=== PATIENT | female | born 1985 | race Hispanic/Latino ===

== ENCOUNTER 2018-03-03 22:23 | Emergency (ER) | payer MEDICAID ==
[2018-03-03 22:54] VITALS: PULSE 76; O2SAT 100
--- NOTE | 2018-03-03 23:22 | ED PDOC ---
HPI: General Adult Time Seen by Provider: 03/03/18 22:55 Chief Complaint (Nursing): Back Pain History Per: Patient Additional Complaint(s): Pt. states 2 days ago she slipped and fell landing on her L side striking her lower back onto a step. Also reports striking her head onto the door as she fell down but reports no LOC or headache. Has had progressively worsening pain in the lower back since the fall. Also states she did injure her neck but has minimal pain to that area. Further reports today she attempted to twist her upper torso and in doing so lower back pain worsened causing her to feel SOB which lasted for only a few seconds. Currently without any SOB. Denies numbness , tingling, abdominal pain, hematuria, chest pain. Past Medical History Reviewed: Historical Data, Nursing Documentation, Vital Signs Vital Signs: Last Vital Signs Temp 98 F 03/04/18 00:03 Pulse 76 03/04/18 00:03 Resp 18 03/04/18 00:03 BP 112/70 03/04/18 00:03 Pulse Ox 100 03/04/18 00:03 - Surgical History Surgical History: No Surg Hx - Family History Family History: States: No Known Family Hx - Home Medications Home Medications: Ambulatory Orders Medication Instructions Recorded Cyclobenzaprine HCl [Flexeril] 10 mg PO Q8 #20 tab 08/16/15 Ibuprofen [Motrin] 600 mg PO Q6H PRN #20 tab 08/16/15 Ibuprofen [Motrin] 600 mg PO Q6 #20 tab 01/13/16 Cephalexin [Keflex] 500 mg PO Q6 #20 capsule 01/16/16 Cyclobenzaprine [Cyclobenzaprine 10 mg PO Q8 PRN #14 tab 03/03/18 HCl] Naproxen [Naprosyn] 500 mg PO BID PRN #14 tab 03/03/18 - Allergies Allergies/Adverse Reactions: Allergies Allergy/AdvReac Type Severity Reaction Status Date / Time No Known Allergies Allergy Verified 08/16/15 12:13 Review of Systems ROS Statement: Except As Marked, All Systems Reviewed And Found Negative Musculoskeletal: Positive for: Back Pain Physical Exam - Physical Exam Appears: Positive for: Well, Non-toxic, No Acute Distress Head Exam: Positive for: ATRAUMATIC, NORMAL INSPECTION, NORMOCEPHALIC Skin: Positive for: Normal Color, Warm. Negative for: Rash Eye Exam: Positive for: Normal appearance, EOMI, PERRL ENT: Positive for: Normal ENT Inspection, TM Is/Are (no hemotympanum b/l) Neck: Positive for: Normal, Painless ROM Cardiovascular/Chest: Positive for: Regular Rate, Rhythm, Chest Non Tender Respiratory: Positive for: Normal Breath Sounds. Negative for: Respiratory Distress Gastrointestinal/Abdominal: Positive for: Normal Exam, Bowel Sounds, Soft, Other (no ecchymosis). Negative for: Tenderness, Distended Back: Negative for: Normal Inspection (ecchymosis noted to L lower back on L pelvic area with tenderness), L CVA Tenderness, R CVA Tenderness, Vertebral Tenderness Extremity: Positive for: Normal ROM, Other (no hip tenderness or deformity b/l) Neurologic/Psych: Positive for: Alert, Oriented, Gait (steady, unassisted) - Laboratory Results Urine POC: Negative - ECG O2 Sat by Pulse Oximetry: 100 - Radiology X-Ray: Interpreted by Me (LS spine, pelvic x-ray) X-Ray Interpretation: Other (no fx) - Progress ED Course And Treament: Toradol 30mg IM, flexeril 10mg PO, pelvic x-ray, LS spine x-ray ordered. Re-evaluation Time: 23:58 (Reports good pain relief. Advised to return to ED immediately if symptoms worsen. Pt. verbalized understanding of necessary f/u. ) Condition: Re-examined, Improved Disposition - Clinical Impression Clinical Impression: Low back pain, Contusion, Head injury - Patient ED Disposition Is Patient to be Admitted: No - Disposition Referrals: Alfredo Wild [Outside] Disposition: Routine/Home Disposition Time: 23:24 Condition: IMPROVED Additional Instructions: Follow up with PMD for further evaluation Return to ED immediately if symptoms worsen Prescriptions: Cyclobenzaprine [Cyclobenzaprine HCl] 10 mg PO Q8 PRN #14 tab PRN Reason: Muscle Spasm Naproxen [Naprosyn] 500 mg PO BID PRN #14 tab PRN Reason: Pain Instructions: Low Back Pain (DC), Contusion (DC), Minor Head Injury (DC) Forms: [employer] ([place]), [facility] ED School/Work Excuse Print Language: KAZAKH
[2018-03-04 00:04] VITALS: BP 112/70; RESP 18; TEMP 98
--- NOTE | 2018-03-04 09:19 | RAD ---
PROCEDURE: Radiographs of the pelvis. HISTORY: trauma COMPARISON: None. FINDINGS: BONES: Pelvic Bones: Unremarkable. Hips: Grossly unremarkable. JOINTS: Sacroiliac Joints: Unremarkable. Pubic Symphysis: Unremarkable. OTHER FINDINGS: None. IMPRESSION: Unremarkable radiographs of the pelvis.
--- NOTE | 2018-03-04 09:19 | RAD ---
PROCEDURE: Radiographs of the Lumbar Spine. HISTORY: trauma COMPARISON: No prior. FINDINGS: BONES: Normal alignment. No listhesis. No fracture. DISC SPACES: Unremarkable. OTHER FINDINGS: None. IMPRESSION: Unremarkable radiographs of the lumbar spine.
== END 2018-03-04 00:04 | disposition home or self-care (01) ==
LOC: H.ER 22:23
DX: S09.90XA Unspecified injury of head, initial encounter (principal); S30.0XXA Contusion of lower back and pelvis, initial encounter; W01.0XXA Fall on same level from slipping, tripping and stumbling without subsequent striking against object, initial encounter; Y92.89 Other specified places as the place of occurrence of the external cause
CPT/HCPCS: 72100; 72170; 81025; 96372; 99283; J1885